=== PATIENT | female | born 1970 | race Caucasian/White ===

== ENCOUNTER 2017-02-11 15:54 | Emergency (ER) | payer SELFPAY ==
[~2017-02-11] VITALS: Ht 167.6 cm; Wt 80.0 kg
[~2017-02-11 15:54] MED LIST: BACT800T5 PO; BENZ2; HALO10TA OR; PYRE1SHA4 TOPICAL; SULF1TAB47 PO; TRAZ100 PO; Z.0.NO CURRENT MEDS; [UNRECOGNIZED DRUG - CODE] PO
[2017-02-11 16:01] VITALS: BP 119/78; PULSE 94; RESP 17; TEMP 98.5; O2SAT 98
--- NOTE | 2017-02-11 16:27 | PD ---
HPI Chief Complaint: Headache Time Seen by Provider: 16:17 Travel History International Travel<30 days: No Contact w/Intl Traveler<30days: No Traveled to known affect area: No History of Present Illness HPI Patient is a 46-year-old female presents emergency Department with complaints of headache hospital loss of consciousness right ankle left knee pain and left elbow pain. Patient states that she was walking and stepped in a pothole with her right ankle twisted her ankle fell into her left side. She does not think she hit her head but is unsure. She recalls the events of the trip and fall quite clearly and thinks that she had a brief loss of consciousness. Incident happened just prior to arrival. She is placed in a c-collar in triage. He is not on any blood thinners no other medical problems. PFSH Past Medical History Anxiety: Yes Depression: Yes (SUICIDE ATTEMPT) Diminished Hearing: No Kidney Stones: Yes ?: Unknown LMP: 1 MONTH : 5 Para: 2 Miscarriage: 3 : 0 Ovarian Cysts: Yes Dilation and Curettage (D&C): Yes Tubal Ligation: Yes Past Surgical History Appendectomy: Yes Section: Yes Gynecologic Surgery: Yes (EXPLOR LAP & CLAMPS TO FALLOPIAN TUBES ) Tonsillectomy: Yes Social History Alcohol Use: No Tobacco Use: Yes (1/2 PPD) Substance Use: No (Patient denies any past use/abuse. ) Allergies-Medications (Allergen,Severity, Reaction): Coded Allergies: Penicillin (Verified Allergy, Mild, RASH, 02/11/17) Reported Meds & Prescriptions Reported Meds & Active Scripts Active Flexeril (Cyclobenzaprine HCl) 10 Mg Tab 10 Mg PO TID Review of Systems Except as stated in HPI: all other systems reviewed are Neg Physical Exam Narrative GENERAL: Well-developed well-nourished no apparent distress SKIN: Focused skin assessment warm/dry. HEAD: Atraumatic. Normocephalic. No raccoons eyes no abraham signs. EYES: Pupils equal and round. No scleral icterus. No injection or drainage. ENT: No nasal bleeding or discharge. Mucous membranes pink and moist. NECK: Trachea midline. No JVD. CARDIOVASCULAR: Regular rate and rhythm. No murmur appreciated. RESPIRATORY: No accessory muscle use. Clear to auscultation. Breath sounds equal bilaterally. GASTROINTESTINAL: Abdomen soft, non-tender, nondistended. Hepatic and splenic margins not palpable. MUSCULOSKELETAL: No obvious deformities. No clubbing. No cyanosis. No edema. Left lower extremity: There is an abrasion to the left knee just below the patella. No joint effusion is observed, patient does have some tenderness at the patella. Full minimally tender range of motion of the left knee. No tenderness at the hip and ankle or foot. No obvious deformities, pulse motor sensory intact distally equal bilaterally Right lower extremity: There is some tenderness at the medial malleolus of the right ankle. No gross deformity seen of the right lower extremity. Hip knee and foot are within normal limits. No skin wounds. Pulses motor and sensory intact distally Equal bilaterally Upper extremities: There is no tenderness at the shoulder elbow wrist or hand bilaterally. Patient does state that her left elbow aches somewhat. No gross deformities, no skin wounds or bruising. Pulses motor and sensory intact distally Equal bilaterally Axial skeleton: No tenderness at the CT or L-spine.No step-offs. Pelvis stable. NEUROLOGICAL: Awake and alert and oriented, cranial nerves II through XII grossly intact nonfocal, 5 out of 5 strength in all 4 extremity's, cerebellar testing normal, sensory normal. PSYCHIATRIC: Appropriate mood and affect; insight and judgment normal. Data Data Last Documented VS Vital Signs Date Time Temp Pulse Resp B/P Pulse Ox O2 Delivery O2 Flow Rate FiO2 02/11/17 17:30 84 16 122/74 98 Room Air 02/11/17 16:[address] Brain W/O Iv Contrast(Rout) (02/11/17 ) Ct Cerv Spine W/O Contrast (02/11/17 ) Oxycodone-Acetamin 5-325 Mg (Percocet (02/11/17 16:30) Knee, Complete (4vws) (02/11/17 ) Ankle, Complete ([id number]) (02/11/17 ) Remove Cervical Collar (02/11/17 17:51) MDM Medical Decision Making Medical Screen Exam Complete: Yes Emergency Medical Condition: Yes Differential Diagnosis Cervical fracture unlikely, head contusion, closed head injury, knee sprain, knee strain, knee fracture, ankle sprain, ankle sprain, ankle fracture, elbow pain. Narrative Course Patient was roomed in the emergency department, she appears well but in some moderate pain. She may have distracting injury and therefore CT his C-spine is indicated. Patient does complain of headache as well as some mild nausea after falling. She does not remember she hit her head or not. She did have loss of consciousness which is very brief. CT head is therefore indicated. Patient does have indications for x-rays of her left knee and right ankle. All the above images were obtained reviewed by me and radiology negative. Last 24 hours Impressions Knee X-Ray 02/11/17 0000 Signed Impressions: Service Date/Time: Saturday, February 11, 2017 16:38 - CONCLUSION: 1. No acute findings. Mild osteoarthritis. Giovanni Ambrosio MD Head CT 02/11/17 0000 Signed Impressions: Service Date/Time: Saturday, February 11, 2017 16:45 - CONCLUSION: Normal examination for a patient of this age. Giovanni Ambrosio MD Cervical Spine CT 02/11/17 0000 Signed Impressions: Service Date/Time: Saturday, February 11, 2017 16:45 - CONCLUSION: Normal examination for a patient of this age. Giovanni Ambrosio MD Ankle X-Ray 02/11/17 0000 Signed Impressions: Service Date/Time: Saturday, February 11, 2017 16:40 - CONCLUSION: Normal examination for a patient of this age. Giovanni Ambrosio MD This was given pain medicine in the emergency department she had Rodriguez wrap applied, she is ambulatory in emerged Department was discharged with a prescription for flexural. Discussed symptomatically management return to ED criteria. Diagnosis Primary Impression: Closed head injury Qualified Code: S09.90XA - Closed head injury, initial encounter Additional Impressions: Knee sprain Ankle sprain Med/Other Pt SpecificInfo: Prescription(s) given Scripts Cyclobenzaprine (Flexeril)10 Mg Tab10 Mg PO TID #20 TAB Ref 0 Prov:Vasile Crews MD 02/11/17 Disposition: 01 DISCHARGE HOME Condition: Stable Vasile Crews MD Feb 11, 2017 16:27
[2017-02-11] MEDS ORDERED: oxyCODONE/ACETAMINOPHEN 5 MG/325 MG TAB PO ONE (16:30)
--- NOTE | 2017-02-11 17:12 | RADHPO ---
EXAM DATE/TIME: 02/11/2017 16:38 [facility] COMPARISON: No previous studies available for comparison. INDICATIONS : Left knee pain post fall today. MEDICAL HISTORY : None. SURGICAL HISTORY : None. ENCOUNTER: Initial ACUITY: 1 day PAIN SCORE: 7/10 LOCATION: Left knee FINDINGS: Four view examination of the left knee demonstrates no evidence of fracture or dislocation. Bony min eralization is normal. The articular surfaces are intact. The suprapatellar soft tissues have a nor mal configuration. CONCLUSION: 1. No acute findings. Mild osteoarthritis. Giovanni Ambrosio MD on February 11, 2017 at 17:09 Board Certified Radiologist. This report was verified electronically.
--- NOTE | 2017-02-11 17:13 | RADHPO ---
EXAM DATE/TIME: 02/11/2017 16:40 [facility] COMPARISON: No previous studies available for comparison. INDICATIONS : Right ankle pain post fall today. MEDICAL HISTORY : None. SURGICAL HISTORY : None. ENCOUNTER: Initial ACUITY: 1 day PAIN SCORE: 7/10 LOCATION: Right ankle. FINDINGS: Three view exam was performed of the right ankle. The bony structures are in normal alignment. No e vidence of fracture, dislocation, or soft tissue swelling. The ankle mortise is intact. No radiopaq ue foreign bodies are seen. Bony mineralization is normal. CONCLUSION: Normal examination for a patient of this age. Giovanni Ambrosio MD on February 11, 2017 at 17:10 Board Certified Radiologist. This report was verified electronically.
--- NOTE | 2017-02-11 17:25 | RADHPO ---
EXAM DATE/TIME: 02/11/2017 16:45 [facility] COMPARISON: No previous studies available for comparison. INDICATIONS : Fall RADIATION DOSE: 68.04 CTDIvol (mGy) MEDICAL HISTORY : None SURGICAL HISTORY : None. ENCOUNTER: Initial ACUITY: 1 day PAIN SCALE: 4/10 LOCATION: cranial TECHNIQUE: Multiple contiguous axial images were obtained of the head. Using automated exposure control and adj ustment of the mA and/or kV according to patient size, radiation dose was kept as low as reasonably a chievable to obtain optimal diagnostic quality images. FINDINGS: CEREBRUM: The ventricles are normal for age. No evidence of midline shift, mass lesion, hemorrhage or acute in farction. No extra-axial fluid collections are seen. POSTERIOR FOSSA: The cerebellum and brainstem are intact. The 4th ventricle is midline. The cerebellopontine angle i s unremarkable. EXTRACRANIAL: The visualized portion of the orbits is intact. SKULL: The calvaria is intact. No evidence of skull fracture. CONCLUSION: Normal examination for a patient of this age. Giovanni Ambrosio MD on February 11, 2017 at 17:21 Board Certified Radiologist. This report was verified electronically.
[2017-02-11 17:30] VITALS: BP 122/74; PULSE 84; RESP 16; O2SAT 98
--- NOTE | 2017-02-11 17:44 | RADHPO ---
EXAM DATE/TIME: 02/11/2017 16:45 [facility] COMPARISON: No previous studies available for comparison. INDICATIONS : Fall, neck pain. RADIATION DOSE: 26.60 CTDIvol (mGy) MEDICAL HISTORY : None SURGICAL HISTORY : None. ENCOUNTER: Initial ACUITY: 1 day PAIN SCALE: 4/10 LOCATION: neck TECHNIQUE: Volumetric scanning of the cervical spine was performed. Multiplanar reconstructions in the sagittal, coronal and oblique axial planes were performed. Using automated exposure control and adjustment o f the mA and/or kV according to patient size, radiation dose was kept as low as reasonably achievable to obtain optimal diagnostic quality images. FINDINGS: VERTEBRAE: Normal vertebral body height. ALIGNMENT: No evidence of subluxation. C2-C3: The bony spinal canal is normal in size. No evidence of disc bulge or herniation. The neural forami na are bilaterally patent. C3-C4: The bony spinal canal is normal in size. No evidence of disc bulge or herniation. The neural forami na are bilaterally patent. C4-C5: The bony spinal canal is normal in size. No evidence of disc bulge or herniation. The neural forami na are bilaterally patent. C5-C6: The bony spinal canal is normal in size. No evidence of disc bulge or herniation. The neural forami na are bilaterally patent. C6-C7: The bony spinal canal is normal in size. No evidence of disc bulge or herniation. The neural forami na are bilaterally patent. C7-T1: The bony spinal canal is normal in size. No evidence of disc bulge or herniation. The neural forami na are bilaterally patent. CONCLUSION: Normal examination for a patient of this age. Giovanni Ambrosio MD on February 11, 2017 at 17:38 Board Certified Radiologist. This report was verified electronically.
[2017-02-11] MEDS ORDERED: CYCL1TAB29 PO (17:53)
== END 2017-02-11 18:11 | disposition home or self-care (01) ==
LOC: PHED 15:54
DX: S09.90XA Unspecified injury of head, initial encounter (principal); S83.92XA Sprain of unspecified site of left knee, initial encounter; S93.401A Sprain of unspecified ligament of right ankle, initial encounter; M25.522 Pain in left elbow; R11.0 Nausea; F17.200 Nicotine dependence, unspecified, uncomplicated; Z86.59 Personal history of other mental and behavioral disorders; Z87.442 Personal history of urinary calculi; W17.2XXA Fall into hole, initial encounter; Y93.01 Activity, walking, marching and hiking
CPT/HCPCS: 70450; 72125; 73564; 73610

== ENCOUNTER 2017-03-25 16:11 | Emergency (ER) | payer SELFPAY ==
[~2017-03-25] VITALS: Ht 170.2 cm; Wt 85.0 kg
[~2017-03-25 16:11] MED LIST changes: -BACT800T5 PO; -BENZ2; +CYCL1TAB29 PO; -HALO10TA OR; -PYRE1SHA4 TOPICAL; -SULF1TAB47 PO; -TRAZ100 PO; -Z.0.NO CURRENT MEDS; -[UNRECOGNIZED DRUG - CODE] PO
[2017-03-25 16:15] VITALS: BP 132/81; PULSE 81; RESP 15; TEMP 98.9; O2SAT 99
[2017-03-25] MEDS ORDERED: IBUP800T23 PO (16:27)
--- NOTE | 2017-03-25 16:34 | PD ---
HPI Chief Complaint: Skin Problem Time Seen by Provider: 16:34 Travel History International Travel<30 days: No Contact w/Intl Traveler<30days: No Traveled to known affect area: No History of Present Illness HPI 46-year-old female presents emergency Department with complaint of a bug bite to bilateral forearms. The left forearm bug bite was about 3 days ago and the right forearm bug bite was yesterday. But by of the left forearm has opened up and drained. Reports pain and swelling to both areas. Denies fever. Reports nausea without vomiting. Has been taking ibuprofen with good relief of pain. Has done warm compresses to both areas. Denies being up-to-date on her tetanus vaccination. Allergies to penicillin. Has no other medical complaints. No other modifying factors or associated signs and symptoms. PFSH Past Medical History Anxiety: Yes Depression: Yes (SUICIDE ATTEMPT) Cardiovascular Problems: Yes (HTN ) Diminished Hearing: No Kidney Stones: Yes Tetanus Vaccination: < 5 Years Influenza Vaccination: No ?: Not : 5 Para: 2 Miscarriage: 3 : 0 Ovarian Cysts: Yes Dilation and Curettage (D&C): Yes Tubal Ligation: Yes Past Surgical History Appendectomy: Yes Section: Yes (X 2) Gynecologic Surgery: Yes (EXPLOR LAP & CLAMPS TO FALLOPIAN TUBES ) Tonsillectomy: Yes Social History Alcohol Use: No Tobacco Use: Yes (1/2-1 PPD) Substance Use: No (Patient denies any past use/abuse. ) Allergies-Medications (Allergen,Severity, Reaction): Coded Allergies: Penicillin (Verified Allergy, Mild, RASH, 02/11/17) Reported Meds & Prescriptions Reported Meds & Active Scripts Active Zofran Odt (Ondansetron Odt) 4 Mg Tab 4 Mg SL Q8HR PRN Clindamycin (Clindamycin HCl) 150 Mg Cap 450 Mg PO Q6H 10 Days Flexeril (Cyclobenzaprine HCl) 10 Mg Tab 10 Mg PO TID Reported Ibuprofen 800 Mg Tab 800 Mg PO Q4HR PRN Review of Systems Except as stated in HPI: all other systems reviewed are Neg Physical Exam Narrative GENERAL: Well-nourished, well-developed female Patient, in no acute distress; afebrile, nontoxic-appearing SKIN: There is an area of erythema to the right forearm with a pinpoint scab in the center; areas without fluctuance or drainage; consistent with cellulitis. Left forearm has an indurated area that is fluctuant and draining purulent drainage and surrounded by a zone of inflammation. No lymphangitis to bilateral upper extremities. Bilateral upper extremities are supple and non- tense with 2+ radial pulses and sensory intact. HEAD: Atraumatic. Normocephalic. EYES: Pupils equal and round. No scleral icterus. No injection or drainage. ENT: Mucosa pink and moist. Airway patent. NECK: Trachea midline. CARDIOVASCULAR: Regular rate. RESPIRATORY: No accessory muscle use. GASTROINTESTINAL: Rounded. MUSCULOSKELETAL: No obvious deformities. No clubbing. No cyanosis. No edema. NEUROLOGICAL: Awake and alert. Oriented 3. No obvious cranial nerve deficits. Motor grossly within normal limits. Normal speech. PSYCHIATRIC: Appropriate mood and affect; insight and judgment normal. Data Data Last Documented VS Vital Signs Date Time Temp Pulse Resp B/P Pulse Ox O2 Delivery O2 Flow Rate FiO2 03/25/17 16:15 98.9 81 15 132/81 99 Orders Ondansetron Odt (Zofran Odt) (03/25/17 16:45) Wound Culture And Gram Stain (03/25/17 16:35) Tetanus/Diphtheria Tox Adult (Tetanus/Di (03/25/17 16:45) MDM Medical Decision Making Medical Screen Exam Complete: Yes Emergency Medical Condition: Yes Medical Record Reviewed: Yes Differential Diagnosis Infected insect bite, cellulitis, abscess Narrative Course 46-year-old female with purulent cellulitis to the left forearm and cellulitis to the right forearm. Wound culture pending. Tetanus updated in the ER. Patient is afebrile and nontoxic-appearing. She denies fever. Reports nausea without vomiting. Zofran administered in the ER. Clindamycin and Zofran prescribed for home. Patient verbalizes understanding and agreement with treatment plan. Patient is medically cleared and stable for discharge. Discussed reasons to return to the emergency department. Instructed patient to follow up with primary care provider. Patient agrees with treatment plan. The patients vital signs are stable and the patient is stable for outpatient follow- up and treatment. Patient discharged home, stable and in no acute distress. Diagnosis Primary Impression: Cellulitis of forearm Referrals: Primary Care Physician Patient Instructions: Abscess (ED), Abscess Follow-up (ED), Cellulitis (ED), General Instructions Departure Forms: Tests/Procedures, Work Release Enter return to work date: March 26, 2017 Additional Instructions: Complete full course of antibiotics Warm compresses to the affected area Keep area clean and dry Ibuprofen or Tylenol as directed and as needed for pain and inflammation Follow-up with primary care provider Return to emergency department immediately with worsening of symptoms Med/Other Pt SpecificInfo: Prescription(s) given Scripts Ondansetron Odt (Zofran Odt)4 Mg Tab4 Mg SL Q8HR PRN (Nausea/Vomiting) #10 TAB Ref 0 Prov:Rowena García 03/25/17 Clindamycin 150 Mg [id number] Mg PO Q6H 10 Days Ref 0 Prov:Rowena García 03/25/17 Disposition: 01 DISCHARGE HOME Condition: Stable Rowena García March 25, 2017 16:34
[2017-03-25] MEDS ORDERED: CLIN1CAP5 PO (16:38)
[2017-03-25] MEDS ORDERED: ZOFR4TAB3 SL (16:38)
[2017-03-25] MEDS ORDERED: TETANUS/DIPHTHERIA TOXOID ADULT 0.5 ML VIAL IM ONE (16:45)
[2017-03-25] MEDS ORDERED: ONDANSETRON ODT 4 MG TAB PO ONE (16:45)
== END 2017-03-25 16:57 | disposition home or self-care (01) ==
LOC: NEPK 16:11
DX: L03.114 Cellulitis of left upper limb (principal); L03.113 Cellulitis of right upper limb; B95.62 Methicillin resistant Staphylococcus aureus infection as the cause of diseases classified elsewhere; I10 Essential (primary) hypertension; F17.200 Nicotine dependence, unspecified, uncomplicated; Z23 Encounter for immunization; Z86.59 Personal history of other mental and behavioral disorders; Z87.442 Personal history of urinary calculi; W57.XXXA Bitten or stung by nonvenomous insect and other nonvenomous arthropods, initial encounter
CPT/HCPCS: 86403; 87070; 87186; 87205; 90471; 90714

== ENCOUNTER 2017-12-10 19:44 | Emergency (ER) | payer SELFPAY ==
[~2017-12-10] VITALS: Ht 167.6 cm; Wt 72.7 kg
[~2017-12-10 19:44] MED LIST changes: +CLIN150C14 PO; +CYCL10TA PO; -CYCL1TAB29 PO; +IBUP1TAB7 PO; +ZOFR4TAB3 SL
[2017-12-10 19:45] VITALS: BP 149/67; PULSE 97; RESP 16; TEMP 98.2; O2SAT 100
[2017-12-10 21:36] LABS: AUTOMATED NEUTROPHIL # 4.1 TH/MM3 (1.8-7.7); BASOPHIL # 0.1 TH/MM3 (0-0.2); BASOPHIL % 1.1 % (0.0-2.0); EOSINOPHIL # 0.1 TH/MM3 (0-0.4); EOSINOPHIL % 0.8 % (0.0-4.0); HEMATOCRIT 39.4 % (35.0-46.0); HEMOGLOBIN 13.5 GM/DL (11.6-15.3); LYMPH % 46.7 % (9.0-44.0); LYMPHOCYTE # 4.1 TH/MM3 (1.0-4.8); MEAN CELL VOLUME 90.9 FL (80.0-100.0); MEAN CORPUSCULAR HEMOGLOBIN 31.2 PG (27.0-34.0); MEAN CORPUSCULAR HGB CONC 34.3 % (32.0-36.0); MEAN PLATELET VOLUME 9.6 FL (7.0-11.0); MONO % 4.4 % (0.0-8.0); MONOCYTE # 0.4 TH/MM3 (0-0.9); PLATELET COUNT 317 TH/MM3 (150-450); RED BLOOD COUNT 4.33 MIL/MM3 (4.00-5.30); WHITE BLOOD COUNT 8.8 TH/MM3 (4.0-11.0)
[2017-12-10 21:43] LABS: BILIRUBIN, URINE NEG (NEG); BLOOD, URINE NEG (NEG); GLUCOSE,URINE NEG (NEG); KETONE, URINE NEG (NEG); MUCUS URINE FEW /lpf (OCC); NITRITE,URINE NEG (NEG); PH, URINE 5.5 (5.0-8.5); SQUAMOUS EPITHELIAL CELL URINE 1 /hpf (0-5); URINE COLOR YELLOW (YELLW/STRAW); URINE LEUKOCYTE ESTERASE NEG (NEG)
[2017-12-10 21:56] LABS: ALT (GPT) 13 U/L (10-53)
--- NOTE | 2017-12-10 21:56 | PD ---
HPI Chief Complaint: Psychiatric Symptoms Time Seen by Provider: 20:33 Travel History International Travel<30 days: No Contact w/Intl Traveler<30days: No Traveled to known affect area: No History of Present Illness HPI Patient is a 47-year-old female presenting to the emergency Department voluntarily for psychiatric evaluation. Patient reports a history of schizophrenia and bipolar disorder, she reports that she has been hallucinating , her mood swings have been increasing. She presents with her employer who corroborates her statements. Patient reports suicidal ideations, she reports a previous suicide attempt several years ago after an ectopic . Symptom onset has been gradual, it was exacerbated due to her birthday and her children did not contact her. In reports that she has a cough, her primary doctor prescribed prednisone and an antibiotic, she states the cough is better. She denies any shortness of breath, chest pain, fever, chills, abdominal pain, headache. Patient uses tobacco products and occasionally smokes marijuana, she denies any alcohol use. Symptoms are moderate in nature. Employer who is with her is concerned as well. PFSH Past Medical History Bipolar Disorder: Yes Anxiety: Yes Depression: Yes (SUICIDE ATTEMPT hx) Cardiovascular Problems: Yes (HTN ) Diminished Hearing: No Kidney Stones: Yes Tetanus Vaccination: < 5 Years Influenza Vaccination: No ?: Unknown : 5 Para: 2 Miscarriage: 3 : 0 Ovarian Cysts: Yes Dilation and Curettage (D&C): Yes Tubal Ligation: Yes Past Surgical History Appendectomy: Yes Section: Yes (X 2) Gynecologic Surgery: Yes (EXPLOR LAP & CLAMPS TO FALLOPIAN TUBES ) Tonsillectomy: Yes Social History Alcohol Use: No (occ) Tobacco Use: Yes (1/2-1 PPD) Substance Use: No (Patient denies any past use/abuse. ) Allergies-Medications (Allergen,Severity, Reaction): Coded Allergies: penicillin G (Unverified Allergy, Mild, RASH, 06/13/17) *MDRO Multi-Drug Resistant Organism (Verified Adverse Reaction, Unknown, MRSA, 03/28/17) MRSA (arm wound) - 03/25/17 Reported Meds & Prescriptions Reported Meds & Active Scripts Active Review of Systems Except as stated in HPI: all other systems reviewed are Neg Respiratory: Positive: Cough Psychiatric: Positive: Depression, Suicidal Ideations, Mood Disorder Physical Exam Narrative GENERAL: Well-developed, well-nourished, well female. Presenting in no acute distress. SKIN: Warm and dry. HEAD: Atraumatic. Normocephalic. EYES: Pupils equal and round. No scleral icterus. No injection or drainage. ENT: No nasal bleeding or discharge. Mucous membranes pink and moist. NECK: Trachea midline. No JVD. CARDIOVASCULAR: Regular rate and rhythm. RESPIRATORY: No accessory muscle use. Clear to auscultation. Breath sounds equal bilaterally. GASTROINTESTINAL: Abdomen soft, non-tender, nondistended. Hepatic and splenic margins not palpable. MUSCULOSKELETAL: Extremities without clubbing, cyanosis, or edema. No obvious deformities. NEUROLOGICAL: Awake and alert. No obvious cranial nerve deficits. Motor grossly within normal limits. Five out of 5 muscle strength in the arms and legs. Normal speech. PSYCHIATRIC: Depressed mood and flat affect; insight and judgment normal. Data Data Last Documented VS Vital Signs Date Time Temp Pulse Resp B/P (MAP) Pulse Ox O2 Delivery O2 Flow Rate FiO2 12/10/17 19:45 98.2 97 16 149/67 (94) 100 Room Air Orders Orders Complete Blood Count With Diff (12/10/17 20:48) Comprehensive Metabolic Panel (12/10/17 20:48) Thyroid Stimulating Hormone (12/10/17 20:48) Urinalysis - C+S If Indicated (12/10/17 20:48) Psych Screen (12/10/17 20:48) Drug Screen, Random Urine (12/10/17 20:48) Labs Laboratory Tests Test 12/10/17 21:00 White Blood Count 8.8 TH/MM3 Red Blood Count 4.33 MIL/MM3 Hemoglobin 13.5 GM/DL Hematocrit 39.4 % Mean Corpuscular Volume 90.9 FL Mean Corpuscular Hemoglobin 31.2 PG Mean Corpuscular Hemoglobin Concent 34.3 % Red Cell Distribution Width 14.0 % Platelet Count 317 TH/MM3 Mean Platelet Volume 9.6 FL Neutrophils (%) (Auto) 47.0 % Lymphocytes (%) (Auto) 46.7 % Monocytes (%) (Auto) 4.4 % Eosinophils (%) (Auto) 0.8 % Basophils (%) (Auto) 1.1 % Neutrophils # (Auto) 4.1 TH/MM3 Lymphocytes # (Auto) 4.1 TH/MM3 Monocytes # (Auto) 0.4 TH/MM3 Eosinophils # (Auto) 0.1 TH/MM3 Basophils # (Auto) 0.1 TH/MM3 CBC Comment DIFF FINAL Differential Comment Urine Color YELLOW Urine Turbidity CLEAR Urine pH 5.5 Urine Specific [place] 1.007 Urine Protein NEG mg/dL Urine Glucose (UA) NEG mg/dL Urine Ketones NEG mg/dL Urine Occult Blood NEG Urine Nitrite NEG Urine Bilirubin NEG Urine Urobilinogen LESS THAN 2.0 MG/DL Urine Leukocyte Esterase NEG Urine RBC LESS THAN 1 /hpf Urine WBC LESS THAN 1 /hpf Urine Squamous Epithelial Cells 1 /hpf Urine Mucus FEW /lpf Microscopic Urinalysis Comment CULT NOT INDICATED Blood Urea Nitrogen 7 MG/DL Creatinine 0.84 MG/DL Random Glucose 98 MG/DL Total Protein 8.0 GM/DL Albumin 3.9 GM/DL Calcium Level 9.3 MG/DL Alkaline Phosphatase 71 U/L Aspartate Amino Transf (AST/SGOT) 10 U/L Alanine Aminotransferase (ALT/SGPT) 13 U/L Total Bilirubin 0.3 MG/DL Sodium Level 140 MEQ/L Potassium Level 3.8 MEQ/L Chloride Level 106 MEQ/L Carbon Dioxide Level 24.9 MEQ/L Anion Gap 9 MEQ/L Estimat Glomerular Filtration Rate 73 ML/MIN Thyroid Stimulating Hormone 3rd Gen 3.720 uIU/ML Urine Opiates Screen NEG Urine Barbiturates Screen NEG Urine Amphetamines Screen NEG Urine Benzodiazepines Screen NEG Urine Cocaine Screen NEG Urine Cannabinoids Screen POS MDM Medical Decision Making Medical Screen Exam Complete: Yes Emergency Medical Condition: Yes Medical Record Reviewed: Yes Interpretation(s) Vital Signs Date Time Temp Pulse Resp B/P (MAP) Pulse Ox O2 Delivery O2 Flow Rate FiO2 12/10/17 19:45 98.2 97 16 149/67 (94) 100 Room Air Differential Diagnosis Mood disorder versus schizophrenia versus suicidal ideations versus metabolic abnormality versus other Narrative Course Patient is a 41 sexual female presented voluntarily for psychiatric evaluation due to suicidal ideations, increasing hallucinations and labile mood. Her vital signs are stable.Mental health screening discussed with the patient. Psychiatric screen ordered. Labs reviewed, no acute findings identified. Patient is medically cleared for psychiatric evaluation. Diagnosis Primary Impression: Medical clearance for psychiatric admission Condition: Stable Bita Osborn Dec 10, 2017 21:56
[2017-12-10 22:05] LABS: ALKALINE PHOSPHATASE 71 U/L (45-117); TOTAL BILIRUBIN ADULT 0.3 MG/DL (0.2-1.0)
[2017-12-10 22:30] LABS: ALBUMIN 3.9 GM/DL (3.4-5.0); AST (GOT) 10 U/L (15-37); BICARBONATE 24.9 MEQ/L (21.0-32.0); BLOOD UREA NITROGEN 7 MG/DL (7-18); CALCIUM 9.3 MG/DL (8.5-10.1); CHLORIDE 106 MEQ/L (98-107); CREATININE 0.84 MG/DL (0.50-1.00); GLOMERULAR FILTRATION RATE 73 ML/MIN (>89); GLUCOSE,RANDOM 98 MG/DL (74-106); SODIUM (NA) 140 MEQ/L (136-145)
--- NOTE | 2017-12-10 23:57 | RADRPT ---
EXAM DATE/TIME: 12/10/2017 23:46 [facility] COMPARISON: No previous studies available for comparison. INDICATIONS : Cough. MEDICAL HISTORY : None. SURGICAL HISTORY : None. ENCOUNTER: Initial ACUITY: 1 day PAIN SCORE: 0/10 LOCATION: Bilateral chest FINDINGS: A single view of the chest demonstrates the lungs to be symmetrically aerated without evidence of mas s, infiltrate or effusion. The cardiomediastinal contours are unremarkable. Osseous structures are intact. CONCLUSION: No acute disease. Aj Garcia MD on December 10, 2017 at 23:56 Board Certified Radiologist. This report was verified electronically.
[2017-12-11] MEDS ORDERED: ALPRAZolam 1 MG TAB PO ONE (02:45)
[2017-12-11] MEDS ORDERED: ACETAMINOPHEN 325 MG TAB PO ONE ×2 (03:00→11:15)
[2017-12-11 07:25] VITALS: BP 123/58; PULSE 80; RESP 14; TEMP 98.8; O2SAT 99
--- NOTE | 2017-12-11 12:42 | PD ---
Physical Exam Date Seen by Provider: Dec 11, 2017 Time Seen by Provider: 12:38 Narrative 47-year-old female with history of schizophrenia previously medically cleared for psychiatric evaluation voluntarily is requesting to be discharged so she can go to [facility]. She has been seen there in the past. Patient previously intubated suicidal ideation but she is able to contract for safety with me and is planning to go straight to [facility] with her mom is picking her up. I feel the patient is safe to pursue this treatment plan. I stated to the patient that she can return if symptoms worsen as needed and she agrees. Data Data Last Documented VS Vital Signs Date Time Temp Pulse Resp B/P (MAP) Pulse Ox O2 Delivery O2 Flow Rate FiO2 12/11/17 07:25 98.8 80 14 123/58 (79) 99 Room Air Orders Orders Complete Blood Count With Diff (12/10/17 20:48) Comprehensive Metabolic Panel (12/10/17 20:48) Thyroid Stimulating Hormone (12/10/17 20:48) Urinalysis - C+S If Indicated (12/10/17 20:48) Psych Screen (12/10/17 20:48) Drug Screen, Random Urine (12/10/17 20:48) Chest, Single Ap (12/10/17 ) Alprazolam (Xanax) (12/11/17 02:45) Acetaminophen (Tylenol) (12/11/17 03:00) Diet Regular Basic (12/11/17 Breakfast) Acetaminophen (Tylenol) (12/11/17 11:15) Ibuprofen (Motrin) (12/11/17 12:45) Labs Laboratory Tests Test 12/10/17 21:00 White Blood Count 8.8 TH/MM3 Red Blood Count 4.33 MIL/MM3 Hemoglobin 13.5 GM/DL Hematocrit 39.4 % Mean Corpuscular Volume 90.9 FL Mean Corpuscular Hemoglobin 31.2 PG Mean Corpuscular Hemoglobin Concent 34.3 % Red Cell Distribution Width 14.0 % Platelet Count 317 TH/MM3 Mean Platelet Volume 9.6 FL Neutrophils (%) (Auto) 47.0 % Lymphocytes (%) (Auto) 46.7 % Monocytes (%) (Auto) 4.4 % Eosinophils (%) (Auto) 0.8 % Basophils (%) (Auto) 1.1 % Neutrophils # (Auto) 4.1 TH/MM3 Lymphocytes # (Auto) 4.1 TH/MM3 Monocytes # (Auto) 0.4 TH/MM3 Eosinophils # (Auto) 0.1 TH/MM3 Basophils # (Auto) 0.1 TH/MM3 CBC Comment DIFF FINAL Differential Comment Urine Color YELLOW Urine Turbidity CLEAR Urine pH 5.5 Urine Specific Carrington 1.007 Urine Protein NEG mg/dL Urine Glucose (UA) NEG mg/dL Urine Ketones NEG mg/dL Urine Occult Blood NEG Urine Nitrite NEG Urine Bilirubin NEG Urine Urobilinogen LESS THAN 2.0 MG/DL Urine Leukocyte Esterase NEG Urine RBC LESS THAN 1 /hpf Urine WBC LESS THAN 1 /hpf Urine Squamous Epithelial Cells 1 /hpf Urine Mucus FEW /lpf Microscopic Urinalysis Comment CULT NOT INDICATED Blood Urea Nitrogen 7 MG/DL Creatinine 0.84 MG/DL Random Glucose 98 MG/DL Total Protein 8.0 GM/DL Albumin 3.9 GM/DL Calcium Level 9.3 MG/DL Alkaline Phosphatase 71 U/L Aspartate Amino Transf (AST/SGOT) 10 U/L Alanine Aminotransferase (ALT/SGPT) 13 U/L Total Bilirubin 0.3 MG/DL Sodium Level 140 MEQ/L Potassium Level 3.8 MEQ/L Chloride Level 106 MEQ/L Carbon Dioxide Level 24.9 MEQ/L Anion Gap 9 MEQ/L Estimat Glomerular Filtration Rate 73 ML/MIN Thyroid Stimulating Hormone 3rd Gen 3.720 uIU/ML Urine Opiates Screen NEG Urine Barbiturates Screen NEG Urine Amphetamines Screen NEG Urine Benzodiazepines Screen NEG Urine Cocaine Screen NEG Urine Cannabinoids Screen POS MDM Medical Record Reviewed: Yes Supervised Visit with MEME: Yes Narrative Course 47-year-old female with history of schizophrenia previously medically cleared for psychiatric evaluation voluntarily is requesting to be discharged so she can go to [facility]. She has been seen there in the past. Patient previously intubated suicidal ideation but she is able to contract for safety with me and is planning to go straight to [facility] with her mom is picking her up. I feel the patient is safe to pursue this treatment plan. I stated to the patient that she can return if symptoms worsen as needed and she agrees. Diagnosis Primary Impression: Medical clearance for psychiatric admission Additional Impression: Depression Qualified Codes: F32.89 - Other specified depressive episodes Referrals: [facility] (Out patient) [facility] Patient Instructions: General Instructions Med/Other Pt SpecificInfo: No Change to Meds Condition: Chele Israel Dec 11, 2017 12:42
[2017-12-11 12:44] VITALS: BP 121/76
[2017-12-11] MEDS ORDERED: IBUPROFEN 600 MG TAB PO ONE (12:45)
== END 2017-12-11 12:52 | disposition home or self-care (01) ==
LOC: NEPD 19:44
DX: F31.9 Bipolar disorder, unspecified (principal); F20.9 Schizophrenia, unspecified; R45.851 Suicidal ideations; F41.9 Anxiety disorder, unspecified; I10 Essential (primary) hypertension; F17.200 Nicotine dependence, unspecified, uncomplicated
CPT/HCPCS: 71045; 80053; 80307; 81001; 84443; 85025; 99284

== ENCOUNTER 2018-03-26 15:04 | Inpatient (IN) | payer OTHER ==
[~2018-03-26] VITALS: Ht 167.6 cm; Wt 91.7 kg
[2018-03-26 15:14] VITALS: BP 140/88; PULSE 119; RESP 18; TEMP 99.6
--- NOTE | 2018-03-26 17:11 | PD ---
HPI Chief Complaint: Psychiatric Symptoms Time Seen by Provider: 16:21 Travel History International Travel<30 days: No Contact w/Intl Traveler<30days: No Traveled to known affect area: No History of Present Illness HPI 47-year-old female presents emergency department as a Allen act with suicide ideations. Patient has a history of paranoid schizophrenia and believes that everyone else out to get her. She also says that "she should be shot" according to the Allen act. At this time, patient denies any suicidal or homicidal ideations. Denies hallucinations. Denies medical history or medication use. She denies fevers or chills. Denies illicit drug use. PFSH Past Medical History Hx Anticoagulant Therapy: No Bipolar Disorder: Yes Anxiety: Yes Depression: Yes (SUICIDE ATTEMPT hx) Cardiovascular Problems: No Chemotherapy: No Cerebrovascular Accident: No Diabetes: No Diminished Hearing: No Kidney Stones: Yes Respiratory: No ?: Not LMP: I dont have periods anymore : 5 Para: 2 Miscarriage: 3 : 0 Ovarian Cysts: Yes Dilation and Curettage (D&C): Yes Tubal Ligation: Yes Past Surgical History Appendectomy: Yes Section: Yes (X 2) Gynecologic Surgery: Yes (EXPLOR LAP & CLAMPS TO FALLOPIAN TUBES ) Hysterectomy: No Tonsillectomy: Yes Social History Alcohol Use: No (occ) Tobacco Use: Yes (1/2-1 PPD) Substance Use: Yes Allergies-Medications (Allergen,Severity, Reaction): Coded Allergies: penicillin G (Unverified Allergy, Mild, RASH, 06/13/17) *MDRO Multi-Drug Resistant Organism (Verified Adverse Reaction, Unknown, MRSA, 03/28/17) MRSA (arm wound) - 03/25/17 Reported Meds & Prescriptions Reported Meds & Active Scripts Active Review of Systems Except as stated in HPI: all other systems reviewed are Neg Physical Exam Narrative GENERAL: Well-developed, well-nourished, disheveled SKIN: Focused skin assessment warm/dry. Tanned HEAD: Atraumatic. Normocephalic. EYES: Pupils equal and round. No scleral icterus. No injection or drainage. ENT: No nasal bleeding or discharge. Mucous membranes pink and moist. NECK: Trachea midline. No JVD. No lymphadenopathy CARDIOVASCULAR: Regular rate and rhythm. No murmur appreciated. RESPIRATORY: No accessory muscle use. Clear to auscultation. Breath sounds equal bilaterally. GASTROINTESTINAL: Abdomen soft, non-tender, nondistended. MUSCULOSKELETAL: No obvious deformities. No clubbing. No cyanosis. No edema. NEUROLOGICAL: Awake and alert. No obvious cranial nerve deficits. Motor grossly within normal limits. Normal speech. PSYCHIATRIC: Appropriate mood and affect; insight and judgment normal. Data Data Last Documented VS Vital Signs Date Time Temp Pulse Resp B/P (MAP) Pulse Ox O2 Delivery O2 Flow Rate FiO2 03/26/18 18:26 99.6 119 18 140/88 (105) 98 Room Air Orders Orders Diet Regular Basic (03/26/18 Dinner) Complete Blood Count With Diff (03/26/18 16:53) Comprehensive Metabolic Panel (03/26/18 16:53) Thyroid Stimulating Hormone (03/26/18 16:53) Urinalysis - C+S If Indicated (03/26/18 16:53) Psych Screen (03/26/18 16:53) Drug Screen, Random Urine (03/26/18 16:53) Labs Laboratory Tests Test 03/26/18 17:06 White Blood Count 12.5 TH/MM3 Red Blood Count 4.62 MIL/MM3 Hemoglobin 14.4 GM/DL Hematocrit 42.1 % Mean Corpuscular Volume 91.1 FL Mean Corpuscular Hemoglobin 31.2 PG Mean Corpuscular Hemoglobin Concent 34.3 % Red Cell Distribution Width 13.8 % Platelet Count 360 TH/MM3 Mean Platelet Volume 10.0 FL Neutrophils (%) (Auto) 65.8 % Lymphocytes (%) (Auto) 26.1 % Monocytes (%) (Auto) 7.1 % Eosinophils (%) (Auto) 0.3 % Basophils (%) (Auto) 0.7 % Neutrophils # (Auto) 8.2 TH/MM3 Lymphocytes # (Auto) 3.3 TH/MM3 Monocytes # (Auto) 0.9 TH/MM3 Eosinophils # (Auto) 0.0 TH/MM3 Basophils # (Auto) 0.1 TH/MM3 CBC Comment DIFF FINAL Differential Comment Blood Urea Nitrogen 7 MG/DL Creatinine 0.90 MG/DL Random Glucose 116 MG/DL Total Protein 8.3 GM/DL Albumin 4.1 GM/DL Calcium Level 9.1 MG/DL Alkaline Phosphatase 77 U/L Aspartate Amino Transf (AST/SGOT) 18 U/L Alanine Aminotransferase (ALT/SGPT) 21 U/L Total Bilirubin 0.3 MG/DL Sodium Level 137 MEQ/L Potassium Level 3.5 MEQ/L Chloride Level 103 MEQ/L Carbon Dioxide Level 22.3 MEQ/L Anion Gap 12 MEQ/L Estimat Glomerular Filtration Rate 67 ML/MIN Thyroid Stimulating Hormone 3rd Gen 1.420 uIU/ML MDM Medical Decision Making Medical Screen Exam Complete: Yes Emergency Medical Condition: Yes Differential Diagnosis Paranoid schizophrenia, medication noncompliance, depression, anxiety, substance use Narrative Course 47-year-old female presents emergency department as a Allen act with suicide ideations. Patient has a history of paranoid schizophrenia and believes that everyone else out to get her. She also says that she should be shot according to the Allen act. At this time, patient denies any suicidal or homicidal ideations. Denies hallucinations. Denies medical history or medication use. She denies fevers or chills. Denies illicit drug use. Vital signs stable. Physical exam findings demonstrate a well-developed, well-nourished disheveled 47-year-old female. Patient is medically cleared to see psych. Pending urinalysis and urine drug screen. Condition: Stable Lorraine Pearce March 26, 2018 17:11
[2018-03-26 17:26] LABS: AUTOMATED NEUTROPHIL # 8.2 TH/MM3 (1.8-7.7); BASOPHIL # 0.1 TH/MM3 (0-0.2); BASOPHIL % 0.7 % (0.0-2.0); EOSINOPHIL % 0.3 % (0.0-4.0); HEMATOCRIT 42.1 % (35.0-46.0); HEMOGLOBIN 14.4 GM/DL (11.6-15.3); LYMPH % 26.1 % (9.0-44.0); LYMPHOCYTE # 3.3 TH/MM3 (1.0-4.8); MEAN CELL VOLUME 91.1 FL (80.0-100.0); MEAN CORPUSCULAR HEMOGLOBIN 31.2 PG (27.0-34.0); MEAN CORPUSCULAR HGB CONC 34.3 % (32.0-36.0); MONO % 7.1 % (0.0-8.0); MONOCYTE # 0.9 TH/MM3 (0-0.9); NEUT % 65.8 % (16.0-70.0); PLATELET COUNT 360 TH/MM3 (150-450); RED BLOOD COUNT 4.62 MIL/MM3 (4.00-5.30); RED CELL DISTRIBUTION WIDTH 13.8 % (11.6-17.2); WHITE BLOOD COUNT 12.5 TH/MM3 (4.0-11.0)
[2018-03-26 17:47] LABS: ALT (GPT) 21 U/L (10-53)
[2018-03-26 17:52] LABS: ALBUMIN 4.1 GM/DL (3.4-5.0); AST (GOT) 18 U/L (15-37); BICARBONATE 22.3 MEQ/L (21.0-32.0); BLOOD UREA NITROGEN 7 MG/DL (7-18); CALCIUM 9.1 MG/DL (8.5-10.1); CHLORIDE 103 MEQ/L (98-107); GLOMERULAR FILTRATION RATE 67 ML/MIN (>89); GLUCOSE,RANDOM 116 MG/DL (74-106); SODIUM (NA) 137 MEQ/L (136-145)
[2018-03-26 17:57] LABS: ALKALINE PHOSPHATASE 77 U/L (45-117); TOTAL BILIRUBIN ADULT 0.3 MG/DL (0.2-1.0); TOTAL PROTEIN 8.3 GM/DL (6.4-8.2)
[2018-03-26 18:26] VITALS: BP 140/88; PULSE 119; RESP 18; TEMP 99.6; O2SAT 98
[2018-03-26 19:26] LABS: BILIRUBIN, URINE NEG (NEG); BLOOD, URINE MOD (NEG); CALCIUM OXALATE CRYSTALS,URINE RARE /hpf; GLUCOSE,URINE NEG (NEG); KETONE, URINE NEG (NEG); NITRITE,URINE NEG (NEG); SQUAMOUS EPITHELIAL CELL URINE 1 /hpf (0-5); URINE COLOR COLORLESS (YELLW/STRAW); URINE LEUKOCYTE ESTERASE NEG (NEG)
[2018-03-27 00:22] VITALS: BP 119/68; PULSE 82; RESP 18; O2SAT 96
[2018-03-27 06:14] VITALS: BP 117/80; PULSE 105; RESP 19; O2SAT 97
--- NOTE | 2018-03-27 08:44 | HHI.HP ---
Provisional Diagnosis Admission Date March 27, 2018 at 08:28 Rudolph I. 1. Schizophrenia, paranoid type, acute exacerbation Rudolph II. Deferred Certification of Person's Competence To Provide Express and Informed Consent I have personally examined Hetal Wong , a person being served at [facility] on, March 27, 2018 08:33. Express and informed consent means consent voluntarily given in writing, by a competent person, after sufficient explanation and disclosure of the subject matter involved to enable the person to make a knowing and willful decision without any element of force, fraud, deceit, duress, or other form of constraint or coercion. This person is 18 years of age or older, is not now known to be incompetent to consent to treatment with a guardian advocate, and does not have a health care surrogate or proxy currently making medical treatment decisions. I have found this person to be one of the following: [] Competent to provide express and informed consent, as defined above, for voluntary admission to this facility and is competent to provide express and informed consent for treatment. He/she has the consistent capacity to make well reasoned, willful, and knowing decisions concerning his or her medical or mental health treatment. The person fully and consistently understands the purpose of the admission for examination/placement and is fully capable of personally exercising all rights assured [place] Incompetent to provide express and informed consent to voluntary admission, and this is incompetent to provide express and informed consent to treatment. The person must be transferred to involuntary status and a petition for a guardian advocate filed with the Circuit Court. [x] Refusing to provide express and informed consent to voluntary admission but is competent to provide express and informed consent for treatment. The person must be discharged or transferred to involuntary status. Form shall be completed within 24 hours of a person's arrival at the receiving facility and filed in the clinical record of each person: 1. Admitted on a voluntary basis 2. Permitted to provide express and informed consent to his/her own treatment 3. Allowed to transfer from involuntary to voluntary status 4. Prior to permitting a person to consent to his or her own treatment after having been previously found incompetent to consent to treatment. History of Present Illness Capacity: Has Capacity (To consent for medication/treatment) Psych Chief Complaint: Psychosis HPI Ms. Wong is a 47-year-old female with a history of schizophrenia who presents under a Allen act by [place] [employer] alleging that the patient articulated a belief that people were coming to kill her. She told officers that ancestors of her family were coming to rape and kill her. Reviewing the electronic medical record, I see no previous psychiatric consultations or admissions within our system. Patient seen and examined. Chart reviewed. Case discussed with nursing staff in the J pod. On my examination this morning the patient presents as quite disheveled and dirty. She smells of urine. She is quite tearful and dysphoric. She tells me "everybody hates me." She tells me "yes, they are trying to kill me. They murdered my father and they know I know the truth." The patient alleges that her stepfather's family is out to kill her, although she readily admits that she has no evidence that this is so. In context, this belief seems likely to be delusional in nature. She tells me "I just feel that [they are trying to kill her]." She denies any suicidal or homicidal ideation but seems unreliable to contract for safety. When asked about audiovisual hallucinations she says "not really" but appears internally stimulated. Thought processes delayed with moderate thought blocking. No hypomanic or manic symptoms. Paranoia is present but no other delusional material. Remainder of the psychiatric ROS is negative. Patient complains of chronic neck and back pain. Otherwise no acute physical complaints. She is requesting discharge from the ED this morning although she says she feels safe in the hospital from her pursuers. Past psychiatric history: Patient has a history of schizophrenia. She is not under the care of a psychiatrist. Most recent admission was to [facility] although she cannot remember when. She does endorse a history of 1 previous suicide attempt on although she cannot remember the year. Family history: The patient denies any family history of mental illness. Chemical dependency history: The patient denies any history of abuse of drugs or alcohol. Social history: The patient reports that she is presently homeless. She has 11 grade education. 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 She has children but says that her has kidnapped them. Unclear if this is reality based or not. Denies any access to guns or firearms. Denies any history of abuse or mistreatment except as detailed above. I called over to [facility] to obtain patient's most recent medication list. She follows with [facility] and was prescribed Risperdal Consta 50 mg every 2 weeks most recently in January,. She also has previously been prescribed Prozac 20 mg but has not been ordered this since November. Review of Systems ROS Limitations: Psychotic, Poor Historian Except as stated in HPI: all other systems reviewed are Neg Past Family Social History Coded Allergies: penicillin G (Unverified Allergy, Mild, RASH, 06/13/17) *MDRO Multi-Drug Resistant Organism (Verified Adverse Reaction, Unknown, MRSA, 03/28/17) MRSA (arm wound) - 03/25/17 Past Medical History Patient reports chronic back and neck pain. No other medical issues reported. Patient takes no home medications. No Active Prescriptions or Reported Meds Patient's Strengths (min. 2) In a monitored setting. Verbally fluent. Physical Exam Physical examination was completed by the ED provider. On my examination today , the patient appears to be in no acute physical distress. No motor abnormalities noted. Labs and vitals reviewed: Vital Signs Vital Signs Date Time Temp Pulse Resp B/P (MAP) Pulse Ox O2 Delivery O2 Flow Rate FiO2 03/27/18 06:14 105 19 117/80 (92) 97 Room Air 03/26/18 18:26 99.6 Lab Results Test 03/26/18 17:06 03/26/18 18:20 White Blood Count 12.5 TH/MM3 Red Blood Count 4.62 MIL/MM3 Hemoglobin 14.4 GM/DL Hematocrit 42.1 % Mean Corpuscular Volume 91.1 FL Mean Corpuscular Hemoglobin 31.2 PG Mean Corpuscular Hemoglobin Concent 34.3 % Red Cell Distribution Width 13.8 % Platelet Count 360 TH/MM3 Mean Platelet Volume 10.0 FL Neutrophils (%) (Auto) 65.8 % Lymphocytes (%) (Auto) 26.1 % Monocytes (%) (Auto) 7.1 % Eosinophils (%) (Auto) 0.3 % Basophils (%) (Auto) 0.7 % Neutrophils # (Auto) 8.2 TH/MM3 Lymphocytes # (Auto) 3.3 TH/MM3 Monocytes # (Auto) 0.9 TH/MM3 Eosinophils # (Auto) 0.0 TH/MM3 Basophils # (Auto) 0.1 TH/MM3 CBC Comment DIFF FINAL Differential Comment Blood Urea Nitrogen 7 MG/DL Creatinine 0.90 MG/DL Random Glucose 116 MG/DL Total Protein 8.3 GM/DL Albumin 4.1 GM/DL Calcium Level 9.1 MG/DL Alkaline Phosphatase 77 U/L Aspartate Amino Transf (AST/SGOT) 18 U/L Alanine Aminotransferase (ALT/SGPT) 21 U/L Total Bilirubin 0.3 MG/DL Sodium Level 137 MEQ/L Potassium Level 3.5 MEQ/L Chloride Level 103 MEQ/L Carbon Dioxide Level 22.3 MEQ/L Anion Gap 12 MEQ/L Estimat Glomerular Filtration Rate 67 ML/MIN Thyroid Stimulating Hormone 3rd Gen 1.420 uIU/ML Urine Color COLORLESS Urine Turbidity CLEAR Urine pH 6.0 Urine Specific Welch 1.001 Urine Protein NEG mg/dL Urine Glucose (UA) NEG mg/dL Urine Ketones NEG mg/dL Urine Occult Blood MOD Urine Nitrite NEG Urine Bilirubin NEG Urine Urobilinogen LESS THAN 2.0 MG/DL Urine Leukocyte Esterase NEG Urine RBC LESS THAN 1 /hpf Urine WBC LESS THAN 1 /hpf Urine Squamous Epithelial Cells 1 /hpf Urine Calcium Oxalate Crystals RARE /hpf Microscopic Urinalysis Comment CULT NOT INDICATED Urine Opiates Screen NEG Urine Barbiturates Screen NEG Urine Amphetamines Screen NEG Urine Benzodiazepines Screen NEG Urine Cocaine Screen NEG Urine Cannabinoids Screen NEG Mild leukocytosis. Mildly decreased GFR. Mental Status Examination Appearance: Dirty, Disheveled, Malodorous Consciousness: Alert Orientation: x4 Motor Activity: Other (No motor abnormalities noted) Speech: Unremarkable Language: Other (Somewhat rambling) Fund of Knowledge: Adequate Attention and Concentration: Easily Distracted Memory: Impaired (Suspect psychosis interferes) Mood: Other (Dysphoric) Affect: Other (Tearful and restricted) Thought Process & Associations: Other (Delayed) Thought Content: Thought blocking, Delusional Hallucination Type: Other (Appears internally stimulated) Delusion Type: Paranoid Suicidal Ideation: No (Unreliable to contract for safety) Suicidal Plan: No Suicidal Intention: No Homicidal Ideation: No Homicidal Plan: No Homicidal Intention: No Insight: Poor Judgment: Poor Assessment & Plan Problem List: (1) Paranoid schizophrenia, chronic condition with acute exacerbation ICD Codes: F20.0 - Paranoid schizophrenia Assessment & Plan 47-year-old female with psychiatric history as detailed above who presents under Allen act by law enforcement. On my examination today, the patient presents as quite dirty and disheveled with an obvious self-care deficit. She endorses probable paranoid delusions. Medication nonadherence is suspected since the patient likely has not received Risperdal Consta injection since January of this year. I will plan to admit the patient to the inpatient psychiatric unit for observation and stabilization. Admit inpatient. Patient is declining to consent for voluntary admission. Involuntary status. I have completed first opinion. Consult for second opinion. Patient retains capacity to consent for medications. I will resume Risperdal M tabs 1 mg twice daily. To consider transitioning back to long- acting injectable Risperdal or perhaps Invega. Ativan as needed for anxiety, Cogentin as needed for EPS, Benadryl as needed for sleep. Check EKG for QTc. Check a beta hCG. Check BMP, CBC, hemoglobin A1c and lipid panel in the morning. Vitals every shift. Counselor to see. Collateral information. Disposition planning. Estimated length of stay: 5-7 days. Discharge Planning Pending psychiatric stabilization Request HC Surrog/Guard Advoc?: No (Not at this time) Fletcher Rios MD March 27, 2018 08:44
[2018-03-27] MEDS ORDERED: BENZTROPINE MESYLATE 2 MG/2 ML VIAL IM PRN (08:45)
[2018-03-27] MEDS ORDERED: ALUMINUM/MAGNESIUM/SIMETH 30 ML CUP PO PRN (08:45)
[2018-03-27] MEDS ORDERED: MAGNESIUM HYDROXIDE SUSP 30 ML CUP PO PRN (08:45)
[2018-03-27] MEDS ORDERED: NICOTINE 21 MG/24 HR PATCH T-DERMAL PRN (08:45)
[2018-03-27] MEDS ORDERED: BENZTROPINE MESYLATE 1 MG TAB PO PRN (08:45)
[2018-03-27] MEDS ORDERED: LORazepam 2 MG/ML VIAL IM PRN (08:45)
[2018-03-27] MEDS ORDERED: REMOVE OLD PATCH T-DERMAL PRN (08:45)
[2018-03-27] MEDS ORDERED: LORazepam 1 MG TAB PO PRN (08:45)
[2018-03-27] MEDS: risperiDONE ODT 1 MG TAB PO SCH ×2 (09:00→21:11)
[2018-03-27 11:00] VITALS: BP 98/55; PULSE 95; RESP 18
[2018-03-27 15:06] VITALS: BP 136/92; PULSE 94; RESP 20; TEMP 98.6; O2SAT 92
[2018-03-27 17:43] VITALS: BP 118/69; PULSE 87; RESP 18; TEMP 97.8; O2SAT 99
[2018-03-27] MEDS: ACETAMINOPHEN 325 MG TAB PO PRN (21:11)
[2018-03-28 06:31] VITALS: BP 118/56; PULSE 88; RESP 17; TEMP 98.2; O2SAT 97
[2018-03-28] MEDS: risperiDONE ODT 1 MG TAB PO SCH ×2 (08:52→21:36)
[2018-03-28 17:57] VITALS: BP 132/61; PULSE 102; RESP 16; TEMP 97.5; O2SAT 98
--- NOTE | 2018-03-28 18:22 | PD.PSY.CON ---
Provisional Diagnosis Admission Date March 27, 2018 at 08:28 [place] I. 1. Schizophrenia, paranoid type, acute exacerbation [place] II. Deferred History of Present Illness Service Psychiatry Consult Requested By Dr. Rios Reason for Consult Second opinion Primary Care Physician No Primary Care Physician HPI Ms. Wong is a 47-year-old female with a history of schizophrenia who presents under a [place] act by [place] [employer] alleging that the patient articulated a belief that people were coming to kill her. She told officers that ancestors of her family were coming to rape and kill her. Reviewing the electronic medical record, I see no previous psychiatric consultations or admissions within our system. Patient seen and examined. Chart reviewed. Case discussed with nursing staff in the J pod. On my examination this morning the patient presents as quite disheveled and dirty. She smells of urine. She is quite tearful and dysphoric. She tells me "everybody hates me." She tells me "yes, they are trying to kill me. They murdered my father and they know I know the truth." The patient alleges that her stepfather's family is out to kill her, although she readily admits that she has no evidence that this is so. In context, this belief seems likely to be delusional in nature. She tells me "I just feel that [they are trying to kill her]." She denies any suicidal or homicidal ideation but seems unreliable to contract for safety. When asked about audiovisual hallucinations she says "not really" but appears internally stimulated. Thought processes delayed with moderate thought blocking. No hypomanic or manic symptoms. Paranoia is present but no other delusional material. Remainder of the psychiatric ROS is negative. Patient complains of chronic neck and back pain. Otherwise no acute physical complaints. She is requesting discharge from the ED this morning although she says she feels safe in the hospital from her pursuers. Past psychiatric history: Patient has a history of schizophrenia. She is not under the care of a psychiatrist. Most recent admission was to [facility] although she cannot remember when. She does endorse a history of 1 previous suicide attempt on although she cannot remember the year. Family history: The patient denies any family history of mental illness. Chemical dependency history: The patient denies any history of abuse of drugs or alcohol. Social history: The patient reports that she is presently homeless. She has 1/ 11 grade education. 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 She has children but says that her has kidnapped them. Unclear if this is reality based or not. Denies any access to guns or firearms. Denies any history of abuse or mistreatment except as detailed above. I called over to [facility] to obtain patient's most recent medication list. She follows with [facility] and was prescribed Risperdal Consta 50 mg every 2 weeks most recently in January,. She also has previously been prescribed Prozac 20 mg but has not been ordered this since November. 03/28/18 -second opinion Patient is a 47-year-old woman, states being domiciled with mother and brother but previously reported being homeless, reports that she has 4 children and currently under the care of her , with a past psychiatric history of schizophrenia, previous psychiatric admissions, one previous suicide attempt was brought in under [place] act by police which patient endorsed that people were coming to kill her and did answer she was becoming to rape and kill her which patient was admitted to the inpatient psychiatry for further evaluation and management. Patient was found sitting hospital bed noted B, superficial cooperative interview today. Patient states that she is here in hospital because she was not feeling good states that there was something going on her house which she denies elated report that she was "naked and running around". She states that her neighbor had called the police which brought her here. She mentions that she lives with her mother and brother and that she had gone over to her friend's home which police was called but was not able to elaborate why friend feel concern to call the police. Patient states that she had been receiving medications "injection" through her outpatient provider was not able to recall which medications they were and states that they were for depression. Currently patient reports feeling "fine" denying any perceptional services at this time but states that she is feeling paranoid of "everyone". Past Family Social History Coded Allergies: penicillin G (Unverified Allergy, Mild, RASH, 06/13/17) *MDRO Multi-Drug Resistant Organism (Verified Adverse Reaction, Unknown, MRSA, 03/28/17) MRSA (arm wound) - 03/25/17 No Active Prescriptions or Reported Meds Current Medications Medications (Trade) Dose Ordered Sig/Raven Route Start Time Stop Time Status Last Admin (Ativan) 1 mg Q6H PRN PO 03/27/18 08:45 (Ativan Inj) 1 mg Q6H PRN IM 03/27/18 08:45 (Benadryl) 50 mg HS PRN PO 03/27/18 08:45 (Tylenol) 650 mg Q4H PRN PO 03/27/18 08:45 03/27/18 21:11 (Milk Of Magnesia Liq) 30 ml DAILY PRN PO 03/27/18 08:45 (Mag-Al Plus Susp Liq) 30 ml Q6H PRN PO 03/27/18 08:45 (Habitrol 21 Mg Patch.24 Hr) 1 patch DAILY PRN T-DERMAL 03/27/18 08:45 (Cogentin) 1 mg Q12H PRN PO 03/27/18 08:45 (Cogentin Inj) 1 mg Q12H PRN IM 03/27/18 08:45 (risperDAL M-TAB) 1 mg Q12HR PO 03/27/18 09:00 03/28/18 08:52 Miscellaneous Information 1 DAILY PRN T-DERMAL 03/27/18 08:45 Patient's Strengths (min. 2) In a monitored setting. Verbally fluent. Physical Exam Vital Signs Vital Signs Date Time Temp Pulse Resp B/P (MAP) Pulse Ox O2 Delivery O2 Flow Rate FiO2 03/28/18 17:57 97.5 102 16 132/61 (84) 98 03/27/18 11:00 Room Air Mental Status Examination Appearance: Dirty, Disheveled, Malodorous Consciousness: Alert Orientation: x4 Motor Activity: Other (No motor abnormalities noted) Speech: Unremarkable Language: Other (Somewhat rambling) Fund of Knowledge: Adequate Attention and Concentration: Easily Distracted Memory: Impaired (Suspect psychosis interferes) Mood: Other (Dysphoric) Affect: Blunt Thought Process & Associations: Other (Delayed) Thought Content: Thought blocking, Delusional Hallucination Type: Other (Appears internally stimulated) Delusion Type: Paranoid Suicidal Ideation: No (Unreliable to contract for safety) Suicidal Plan: No Suicidal Intention: No Homicidal Ideation: No Homicidal Plan: No Homicidal Intention: No Insight: Poor Judgment: Poor Assessment & Plan Problem List: (1) Paranoid schizophrenia, chronic condition with acute exacerbation ICD Codes: F20.0 - Paranoid schizophrenia Assessment & Plan I have seen and examined this patient, reviewed the documentation, and I agree and concur with Dr. Rios assessment and plan. Consult appreciated. Patient this time noted to be disorganized, thought blocking, internally preoccupied continues require inpatient psychiatric stabilization. We will continue risperidone 1 mg p.o. twice daily with upper titration as needed for psychosis. We will continue to monitor mood and behavior. Discharge planning in progress. Discharge Planning To be determined. Request HC Surrog/Guard Advoc?: No (Not at this time) Km Burris MD March 28, 2018 18:22
[2018-03-29 06:08] VITALS: BP 124/77; PULSE 105; RESP 16; TEMP 97.8; O2SAT 95
[2018-03-29] MEDS: ACETAMINOPHEN 325 MG TAB PO PRN ×2 (06:25→18:15)
[2018-03-29 06:34] VITALS: BP 124/77; PULSE 80
[2018-03-29] MEDS: risperiDONE ODT 1 MG TAB PO SCH ×2 (08:50→21:10)
--- NOTE | 2018-03-29 16:11 | HHI.PYPN ---
Subjective Chief Complaint: Psychosis Remarks Patient seen and examined with nurse in coverage for Dr. Burris. Chart reviewed. Case discussed with nursing staff who reports patient is tearful and still paranoid. On my examination today, the patient presents as floridly psychotic. Affect is decidedly irritable. She asks me, "who is this Dr. Sharma? I been called Pramodmanuelrocael Sharma all my life." She apparently believes that there is some female who is out to get her, and she tells this provider "you're probably on her side." She denies AVH but appears frankly internally stimulated. Denies SI or HI but seems unreliable to contract for safety. No side effects from medications. No physical complaints. Asking about discharge, and I provided her with education regarding her legal status and the [place] act court. Review of Systems ROS Limitations: Uncooperative, Psychotic, Poor Historian Except as stated in HPI: all other systems reviewed are Neg Mental Status Examination Appearance: Disheveled Consciousness: Alert Orientation: Person, Place (At least) Motor Activity: Other (No tremor, no dystonia, no dyskinesia noted) Speech: Unremarkable Language: Other (Rambling) Fund of Knowledge: Adequate Attention and Concentration: Easily Distracted Memory: Impaired (Psychosis interferes) Mood: Irritable, Other (Dysphoric) Affect: Other (Restricted) Thought Process & Associations: Tangential Thought Content: Hallucinations, Delusional Hallucination Type: Other (Internally preoccupied) Delusion Type: Paranoid Suicidal Ideation: No (Unreliable to contract for safety) Homicidal Ideation: No Insight: Poor Judgment: Poor Results Labs Laboratories ordered yesterday are listed as "in process" and were possibly refused by patient. I have reordered these for tomorrow morning. EKG was canceled as "timed out." I have reordered this as well. Vitals/IOs Vital Signs Date Time Temp Pulse Resp B/P (MAP) Pulse Ox O2 Delivery O2 Flow Rate FiO2 03/29/18 06:34 80 124/77 (93) 03/29/18 06:08 97.8 16 95 03/27/18 11:00 Room Air Assessment & Plan Problem List: (1) Paranoid schizophrenia, chronic condition with acute exacerbation ICD Codes: F20.0 - Paranoid schizophrenia Assessment & Plan Patient remains exceedingly psychotic. She is presently maintaining on the lower acuity unit but may ultimately require transfer to the higher acuity unit. Case discussed with RN. Titrate Risperdal to 2 mg twice daily to target psychotic symptoms. I have reordered an EKG and laboratories. Continue to monitor on the inpatient unit. Continue other medications and care as ordered. Justification for Cont. Inpt. Medication changes. Impairment in reality construction. High risk for decompensation in less restrictive environment. Discharge Planning Per Dr. Burris Request HC Surrog/Guard Advoc?: No (Not at this time) Fletcher Rios MD March 29, 2018 16:11
[2018-03-29 17:53] VITALS: BP 137/75; PULSE 95; RESP 17; TEMP 97.7; O2SAT 99
[2018-03-30 05:17] VITALS: PULSE 79; RESP 16; TEMP 98.2; O2SAT 96
[2018-03-30] MEDS: risperiDONE ODT 1 MG TAB PO SCH (08:19)
--- NOTE | 2018-03-30 14:58 | EKG ---
Date Performed: 03/29/2018 Time Performed: 19:16:33 PTAGE: 47 years EKG: Sinus rhythm NORMAL ECG NO PREVIOUS TRACING DOCTOR: Matty Lucio Interpretating Date/Time 03/30/2018 14:53:49
[2018-03-30 16:59] VITALS: BP 125/70; PULSE 99; RESP 16; TEMP 98.1; O2SAT 98
--- NOTE | 2018-03-30 18:22 | HHI.PYPN ---
Subjective Chief Complaint: Psychosis Remarks Patient seen for follow-up, chart reviewed. Discussion with nursing staff reported that the patient seclusive, disheveled. Patient found participating in group activity. She is noted to have paranoia, stating "I feel like I have enemies" with no one in particular but later states that her brother and her girlfriend are against her. She reports sleeping well, mood being "good", continues with AH telling her derogatory comments. She states that the AH occur more when she is around her brother. She states having spoken to her mother, Renetta Jason [phone], and was told that she could stay with her mother upon discharge. Review of Systems Except as stated in HPI: all other systems reviewed are Neg Mental Status Examination Appearance: Disheveled Consciousness: Alert Orientation: Person, Place (At least) Motor Activity: Other (No tremor, no dystonia, no dyskinesia noted) Speech: Unremarkable Language: Other (Rambling) Fund of Knowledge: Adequate Attention and Concentration: Easily Distracted Memory: Impaired (Psychosis interferes) Mood: Irritable, Other (Dysphoric) Affect: Other (Restricted) Thought Process & Associations: Tangential Thought Content: Hallucinations, Delusional Hallucination Type: Other (Internally preoccupied) Delusion Type: Paranoid Suicidal Ideation: No (Unreliable to contract for safety) Homicidal Ideation: No Insight: Poor Judgment: Poor Results Vitals/IOs Vital Signs Date Time Temp Pulse Resp B/P (MAP) Pulse Ox O2 Delivery O2 Flow Rate FiO2 03/30/18 16:59 98.1 99 16 125/70 (88) 98 03/27/18 11:00 Room Air Assessment & Plan Problem List: (1) Paranoid schizophrenia, chronic condition with acute exacerbation ICD Codes: F20.0 - Paranoid schizophrenia Assessment & Plan Patient continues with paranoid ideations, AH, with poor upkeep of hygiene but less seclusive now and participating in groups. Will increase risperidone to 2mg a.m./3mg HS, continue rest of medications. Continue to monitor mood and behavior. Discharge planning in progress. Justification for Cont. Inpt. At risk for further decompensation at lower level of care. Discharge Planning To be determined Request HC Surrog/Guard Advoc?: No (Not at this time) Km Burris MD Mar 30, 2018 18:22
[2018-03-30] MEDS: risperiDONE 3 MG TAB PO SCH (21:27)
[2018-03-30] MEDS: ACETAMINOPHEN 325 MG TAB PO PRN (22:14)
[2018-03-31 06:00] VITALS: BP 100/58; PULSE 85; RESP 18; TEMP 98.2; O2SAT 98
[2018-03-31 08:39] LABS: BASOPHIL % 0.6 % (0.0-2.0); EOSINOPHIL # 0.1 TH/MM3 (0-0.4); EOSINOPHIL % 2.7 % (0.0-4.0); HEMATOCRIT 47.1 % (35.0-46.0); HEMOGLOBIN 16.1 GM/DL (11.6-15.3); LYMPH % 47.3 % (9.0-44.0); LYMPHOCYTE # 2.1 TH/MM3 (1.0-4.8); MEAN CORPUSCULAR HEMOGLOBIN 30.8 PG (27.0-34.0); MEAN CORPUSCULAR HGB CONC 34.2 % (32.0-36.0); MEAN PLATELET VOLUME 10.1 FL (7.0-11.0); MONO % 5.4 % (0.0-8.0); MONOCYTE # 0.2 TH/MM3 (0-0.9); PLATELET COUNT 169 TH/MM3 (150-450); RED BLOOD COUNT 5.23 MIL/MM3 (4.00-5.30); RED CELL DISTRIBUTION WIDTH 13.9 % (11.6-17.2); WHITE BLOOD COUNT 4.5 TH/MM3 (4.0-11.0)
[2018-03-31 08:41] LABS: BICARBONATE 22.4 MEQ/L (21.0-32.0); BLOOD UREA NITROGEN 10 MG/DL (7-18); CALCIUM 8.1 MG/DL (8.5-10.1); CHLORIDE 108 MEQ/L (98-107); CHOLESTEROL 154 MG/DL (120-200); CREATININE 0.68 MG/DL (0.50-1.00); GLOMERULAR FILTRATION RATE 93 ML/MIN (>89); GLUCOSE,RANDOM 92 MG/DL (74-106); SODIUM (NA) 141 MEQ/L (136-145); TRIGLYCERIDES 80 MG/DL (42-150)
[2018-03-31 08:43] LABS: CHOLESTEROL/ HDL RATIO 3.85 RATIO; HDL CHOLESTEROL 39.9 MG/DL (40.0-60.0); LDL CHOLESTEROL 98 MG/DL (0-99)
[2018-03-31] MEDS: risperiDONE ODT 1 MG TAB PO SCH (09:15)
--- NOTE | 2018-03-31 13:49 | HHI.PYPN ---
Subjective Chief Complaint: Psychosis Remarks Patient was seen and case discussed with nursing. Patient continues to be quite psychotic. She has a fixed delusion that her dad and sisters have the ability to kill her. She believes that they can even get her while she is here in the unit. She denies auditory hallucinations but is likely responding to internal stimuli. Insight is quite poor. Per nursing she was "labile this morning." He is compliant with her medications. Denies suicidal or homicidal ideation intent or plan Mental Status Examination Appearance: Disheveled Consciousness: Alert Orientation: Person, Place (At least) Motor Activity: Other (No tremor, no dystonia, no dyskinesia noted) Speech: Unremarkable Language: Other (Rambling) Fund of Knowledge: Adequate Attention and Concentration: Easily Distracted Memory: Impaired (Psychosis interferes) Mood: Irritable, Other (Dysphoric) Affect: Other (Restricted) Thought Process & Associations: Tangential Thought Content: Hallucinations, Delusional Hallucination Type: Other (Internally preoccupied) Delusion Type: Paranoid Suicidal Ideation: No (Unreliable to contract for safety) Suicidal Plan: No Suicidal Intention: No Homicidal Ideation: No Insight: Poor Judgment: Poor Results Labs Test 03/31/18 07:16 White Blood Count 4.5 TH/MM3 Red Blood Count 5.23 MIL/MM3 Hemoglobin 16.1 GM/DL Hematocrit 47.1 % Mean Corpuscular Volume 90.0 FL Mean Corpuscular Hemoglobin 30.8 PG Mean Corpuscular Hemoglobin Concent 34.2 % Red Cell Distribution Width 13.9 % Platelet Count 169 TH/MM3 Mean Platelet Volume 10.1 FL Neutrophils (%) (Auto) 44.0 % Lymphocytes (%) (Auto) 47.3 % Monocytes (%) (Auto) 5.4 % Eosinophils (%) (Auto) 2.7 % Basophils (%) (Auto) 0.6 % Neutrophils # (Auto) 2.0 TH/MM3 Lymphocytes # (Auto) 2.1 TH/MM3 Monocytes # (Auto) 0.2 TH/MM3 Eosinophils # (Auto) 0.1 TH/MM3 Basophils # (Auto) 0.0 TH/MM3 CBC Comment DIFF FINAL Differential Comment Hematology Comments Blood Urea Nitrogen 10 MG/DL Creatinine 0.68 MG/DL Random Glucose 92 MG/DL Calcium Level 8.1 MG/DL Sodium Level 141 MEQ/L Potassium Level 4.1 MEQ/L Chloride Level 108 MEQ/L Carbon Dioxide Level 22.4 MEQ/L Anion Gap 11 MEQ/L Estimat Glomerular Filtration Rate 93 ML/MIN Triglycerides Level 80 MG/DL Cholesterol Level 154 MG/DL LDL Cholesterol 98 MG/DL HDL Cholesterol 39.9 MG/DL Cholesterol/HDL Ratio 3.85 RATIO Vitals/IOs Vital Signs Date Time Temp Pulse Resp B/P (MAP) Pulse Ox O2 Delivery O2 Flow Rate FiO2 03/31/18 06:00 98.2 85 18 100/58 (72) 98 03/27/18 11:00 Room Air Assessment & Plan Problem List: (1) Paranoid schizophrenia, chronic condition with acute exacerbation ICD Codes: F20.0 - Paranoid schizophrenia Assessment & Plan Continue current treatment plan Justification for Cont. Inpt. Patient would decompensate in a less restrictive setting Request HC Surrog/Guard Advoc?: No (Not at this time) Des Hassan DO Mar 31, 2018 13:49
[2018-03-31] MEDS: ACETAMINOPHEN 325 MG TAB PO PRN (14:43)
[2018-03-31 18:20] VITALS: BP 134/86; PULSE 102; RESP 16; TEMP 98.4; O2SAT 98
[2018-03-31] MEDS: risperiDONE 3 MG TAB PO SCH (20:11)
[2018-04-01 05:38] VITALS: BP 97/56; PULSE 88; RESP 16; TEMP 98; O2SAT 97
--- NOTE | 2018-04-01 08:48 | HHI.PYPN ---
Subjective Chief Complaint: Psychosis Remarks Patient was seen and case discussed with nursing. Patient continues to have her fixed delusion that her family members want to kill her. She describes a nightmare where she killed her brother's pet. She is compliant with medications for this poor insight into her admission. Mental Status Examination Appearance: Disheveled Consciousness: Alert Orientation: Person, Place (At least) Motor Activity: Other (No tremor, no dystonia, no dyskinesia noted) Speech: Unremarkable Language: Other (Rambling) Fund of Knowledge: Adequate Attention and Concentration: Easily Distracted Memory: Impaired (Psychosis interferes) Mood: Irritable, Other (Dysphoric) Affect: Other (Restricted) Thought Process & Associations: Tangential Thought Content: Hallucinations, Delusional Hallucination Type: Other (Internally preoccupied) Delusion Type: Paranoid Suicidal Ideation: No (Unreliable to contract for safety) Suicidal Plan: No Suicidal Intention: No Homicidal Ideation: No Insight: Poor Judgment: Poor Results Vitals/IOs Vital Signs Date Time Temp Pulse Resp B/P (MAP) Pulse Ox O2 Delivery O2 Flow Rate FiO2 04/01/18 05:38 98.0 88 16 97/56 (70) 97 Assessment & Plan Problem List: (1) Paranoid schizophrenia, chronic condition with acute exacerbation ICD Codes: F20.0 - Paranoid schizophrenia Assessment & Plan Continue current treatment plan Justification for Cont. Inpt. Patient would decompensate in a less restrictive setting Request HC Surrog/Guard Advoc?: No (Not at this time) Des Hassan DO Apr 01, 2018 08:48
[2018-04-01 09:38] LABS: HEMOGLOBIN A1C 5.7 % (4.3-6.0)
[2018-04-01] MEDS: risperiDONE ODT 1 MG TAB PO SCH (09:38)
[2018-04-01] MEDS: ACETAMINOPHEN 325 MG TAB PO PRN ×2 (15:45→20:28)
[2018-04-01 16:49] VITALS: BP 121/55; PULSE 99; RESP 16; TEMP 98.9; O2SAT 96
[2018-04-01] MEDS: risperiDONE 3 MG TAB PO SCH (20:27)
[2018-04-02 06:16] VITALS: BP 98/55; PULSE 78; RESP 17; TEMP 97.8; O2SAT 95
[2018-04-02] MEDS: risperiDONE ODT 1 MG TAB PO SCH (09:23)
[2018-04-02] MEDS: ACETAMINOPHEN 325 MG TAB PO PRN ×2 (11:14→21:19)
[2018-04-02 18:20] VITALS: BP 130/57; PULSE 92; RESP 16; TEMP 98.1; O2SAT 96
--- NOTE | 2018-04-02 18:22 | HHI.PYPN ---
Subjective Chief Complaint: Psychosis Remarks Patient seen for follow, chart reviewed. Discussion nursing staff reported the patient is pleasant, continues to be paranoid and continues to endorse bizarre delusions of persecution from her answers, to kill her. Patient was found lying hospital bed noted B, cooperative. Patient states that she is feeling "better", states having spoken with mother the phone and's stating that her mother is willing to have her stay with her upon discharge. She states that she continues to have auditory hallucinations of "P mocked" of several voices but no longer having command auditory hallucinations. Patient continues to state that they were "people from a stepfather side after me" stating that she "knows things" in terms of criminal activity. Patient also spoke of some discord with her brother who also lives with her mother. Patient states she has been improving in her personal hygiene and attending groups. Review of Systems Except as stated in HPI: all other systems reviewed are Neg Mental Status Examination Appearance: Appropriate, Other (In hospital [facility]) Consciousness: Alert Orientation: Person, Place (At least) Motor Activity: Normal gait, Other (No tremor, no dystonia, no dyskinesia noted ) Speech: Unremarkable Language: Adequate Fund of Knowledge: Adequate Attention and Concentration: Easily Distracted Memory: Impaired (Psychosis interferes) Mood: Appropriate Affect: Appropriate Thought Process & Associations: Other (Jenkins) Thought Content: Hallucinations, Delusional Hallucination Type: Auditory (Derogatory comments), Other (Internally preoccupied) Delusion Type: Paranoid, Other (Persecutory) Suicidal Ideation: No (Unreliable to contract for safety) Suicidal Plan: No Suicidal Intention: No Homicidal Ideation: No Homicidal Plan: No Homicidal Intention: No Insight: Poor Judgment: Poor Results Vitals/IOs Vital Signs Date Time Temp Pulse Resp B/P (MAP) Pulse Ox O2 Delivery O2 Flow Rate FiO2 04/02/18 06:16 97.8 78 17 98/55 (26) 95 Assessment & Plan Problem List: (1) Paranoid schizophrenia, chronic condition with acute exacerbation ICD Codes: F20.0 - Paranoid schizophrenia Assessment & Plan Patient this time continues to endorse auditory hallucinations of voices "mocking her", denying any command auditory hallucination to hurt himself, denies any suicidal homicidal ideations, continues to have paranoid and persecutory delusions of ancestors coming to kill her. We will continue to increase risperidone to 3 mg p.o. twice daily for psychosis, we will continue monitor mood and behavior. Patient's hygiene has improved and is attending groups. Collateral formation pending from patient's mother (Renetta Jason ). Discharge planning in progress. Justification for Cont. Inpt. At risk for further decompensation if at lower level of care Discharge Planning Patient possibly to be discharged to patient's mother's home Request HC Surrog/Guard Advoc?: No (Not at this time) Km Burris MD Apr 02, 2018 18:22
[2018-04-02] MEDS: risperiDONE 3 MG TAB PO SCH (21:19)
[2018-04-03 05:46] VITALS: BP 95/54; PULSE 85; RESP 16; TEMP 97.9; O2SAT 96
--- NOTE | 2018-04-03 08:22 | PD.TTN ---
Patient Problems 1. Discharge planning 2. Medication compliance 3. Knowledge deficit 4. Lack of coping skills Progress Toward Goals Provider Input: 04/02/18 Dr. Burris had his treatment team meeting to discuss patient's treatment plan, medication, and discharge plan. Patient's medication will be increased. Continue to treat Nurse(s) Input: 04/02/18 Patient's nurse reports patient is pleasant, very paranoid, delusional Psychiatric Counselors Present: Renetta Muñoz [facility] Psych Therapist Input: 04/02/18 Patient is pleasant, parnoid, exit seeking. Patient's medication has been increased. Group Spec/RT/OT/CUBA Present: Veronica Dan, GHANSHYAM, ROSA ELENA [place] Group Spec/RT/OT/CUBA Input: 04/02/18 Patient attends selective groups appropriately Renetta Muñoz [facility] Apr 03, 2018 08:22
[2018-04-03] MEDS: risperiDONE 3 MG TAB PO SCH ×2 (09:05→21:09)
[2018-04-03] MEDS: ACETAMINOPHEN 325 MG TAB PO PRN ×2 (13:57→21:11)
--- NOTE | 2018-04-03 17:30 | HHI.PYPN ---
Subjective Chief Complaint: Psychosis Remarks Patient seen for follow, chart reviewed. Discussion nursing staff reported the patient continues with flat affect, was noted to be tearful less evening stating that she misses her children continues to endorse bizarre thoughts to nursing staff, denying any suicidal homicidal ideations or perceptual services. Patient was found lying hospital bed asleep noted B, cooperative. Patient states that she is feeling "better" stating that she spoke with the mother the phone continues to have a plan to stay with her mother and attended the backyard. Patient states that she has been showering and taking care of hygiene , eating well along with adequate bowel movement. Patient continues to have auditory hallucinations which he last experienced yesterday and stated that it is getting better. Patient continues to endorse persecutory delusions of her answers are trying to come and kill her and states that she does not feel safe most of the time outside of the hospital and only feels that whenever she is with her mother. Review of Systems Except as stated in HPI: all other systems reviewed are Neg Mental Status Examination Appearance: Appropriate, Other (In hospital [facility]) Consciousness: Alert Orientation: Person, Place (At least) Motor Activity: Normal gait, Other (No tremor, no dystonia, no dyskinesia noted ) Speech: Unremarkable Language: Adequate Fund of Knowledge: Adequate Attention and Concentration: Easily Distracted Memory: Impaired (Psychosis interferes) Mood: Appropriate Affect: Appropriate Thought Process & Associations: Other ([place]) Thought Content: Hallucinations, Delusional Hallucination Type: Auditory (Denies today), Other (Internally preoccupied) Delusion Type: Paranoid (Lessening), Other (Persecutory) Suicidal Ideation: No (Unreliable to contract for safety) Suicidal Plan: No Suicidal Intention: No Homicidal Ideation: No Homicidal Plan: No Homicidal Intention: No Insight: Poor Judgment: Poor Results Vitals/IOs Vital Signs Date Time Temp Pulse Resp B/P (MAP) Pulse Ox O2 Delivery O2 Flow Rate FiO2 04/03/18 05:46 97.9 85 16 95/54 (68) 96 Intake and Output 04/03/18 04/03/18 04/04/18 08:00 16:00 00:00 Intake Total 360 ml Balance 360 ml Assessment & Plan Problem List: (1) Paranoid schizophrenia, chronic condition with acute exacerbation ICD Codes: F20.0 - Paranoid schizophrenia Assessment & Plan Patient continues to have bizarre paranoid and persecutory delusions of his answers after her to kill her, continues to have some paranoia but appears to be lessening as well as decreasing auditory hallucinations. Patient recently had Risperdal increased therefore we will continue current treatment that she is currently on risperidone 3 mg p.o. twice daily for psychosis, we will continue rest of medications. Continue to monitor mood and behavior. Collateral formation pending from patient's mother. Discharge planning a progress. Justification for Cont. Inpt. At risk of further decompensation a lower level of care. Discharge Planning To be determined. Request HC Surrog/Guard Advoc?: No (Not at this time) Km Burris MD Apr 03, 2018 17:30
[2018-04-03 17:57] VITALS: BP 112/72; PULSE 78; RESP 18; TEMP 98.2
[2018-04-03] MEDS: diphenhydrAMINE HCL 50 MG CAP PO PRN (21:09)
[2018-04-04 05:58] VITALS: BP 88/50; PULSE 67; RESP 16; TEMP 97.6; O2SAT 100
[2018-04-04] MEDS: risperiDONE 3 MG TAB PO SCH ×2 (08:16→20:52)
--- NOTE | 2018-04-04 14:34 | PD.TTN ---
Patient Problems 1. Discharge planning 2. Medication compliance 3. Knowledge deficit 4. Lack of coping skills Progress Toward Goals Provider Input: 04/02/18 Dr. Burris had his treatment team meeting to discuss patient's treatment plan, medication, and discharge plan. Patient's medication will be increased. Continue to treat 04/04/18 Patient doing better, medication compliant. Patient going to [place] [address] [facility] tomorrow. Nurse(s) Input: 04/02/18 Patient's nurse reports patient is pleasant, very paranoid, delusional 04/04/18/ Patient's nurse reports patient is doing well, medication compliant, paranoid, still delusional Psychiatric Counselors Present: Renetta Muñoz [facility] Psych Therapist Input: 04/02/18 Patient is pleasant, parnoid, exit seeking. Patient's medication has been increased. 04/04/18 Patient presented with anxiety, tearful, labile, cooperative but guarded, no insight, affect blunted. Speech disorganized, clear, and pressured, rambling. Group Spec/RT/OT/CUBA Present: Veronica Dan, GHANSHYAM, ROSA ELENA [place] Group Spec/RT/OT/CUBA Input: 04/02/18 Patient attends selective groups appropriately 04/04/18 Patient continues to attend selective groups appropriately. Renetta Muñoz [facility] Apr 04, 2018 14:34
--- NOTE | 2018-04-04 15:17 | HHI.PYPN ---
Subjective Chief Complaint: Psychosis Remarks Patient seen for follow, chart reviewed. Discussion nursing staff reported the patient continues with bizarre delusions of persecution and paranoia, continues to be isolative, calm and cooperative with no behavioral disturbances. Patient was found lying hospital bed noted B, cooperative. Patient states that she has not been attending groups, but has been showering eating and drinking well. Patient continues to endorse auditory hallucinations but states that she can block them out whenever she is in bed but yet has been mostly in bed most of the day. Patient states that she was not sure when she had less experience the auditory hallucinations. Patient describes him as "some that bother me in some that do not" stating that the voices that bother her and not recurred since admission but continues to hear voices that do not bother her when she last heard yesterday. Patient states that she wants to be able to go back to work and return to mother's home yet she continues to report discord between her and her brother. She states that she had called her mother yesterday which she was then passed to speak with her brother which did not turning machine operator helper to be a good conversation as per patient. She also continues to report believing that her father was murdered and of those people are after her and possibly get to her through her brother. Review of Systems Except as stated in HPI: all other systems reviewed are Neg Mental Status Examination Appearance: Appropriate, Other (In [facility]) Consciousness: Alert Orientation: Person, Place (At least) Motor Activity: Normal gait, Other (No tremor, no dystonia, no dyskinesia noted ) Speech: Unremarkable Language: Adequate Fund of Knowledge: Adequate Attention and Concentration: Easily Distracted Memory: Impaired (Psychosis interferes) Mood: Appropriate Affect: Appropriate Thought Process & Associations: Other ([place]) Thought Content: Hallucinations, Delusional Hallucination Type: Auditory (Denies today), Other (Internally preoccupied) Delusion Type: Paranoid (Lessening), Other (Persecutory) Suicidal Ideation: No (Unreliable to contract for safety) Suicidal Plan: No Suicidal Intention: No Homicidal Ideation: No Homicidal Plan: No Homicidal Intention: No Insight: Poor Judgment: Poor Results Vitals/IOs Vital Signs Date Time Temp Pulse Resp B/P (MAP) Pulse Ox O2 Delivery O2 Flow Rate FiO2 04/04/18 05:58 97.6 67 16 88/50 (88) 100 Assessment & Plan Problem List: (1) Paranoid schizophrenia, chronic condition with acute exacerbation ICD Codes: F20.0 - Paranoid schizophrenia Assessment & Plan Patient this time continues to endorse auditory hallucinations but no longer derogatory. Patient continues to have paranoid persecutory delusions from certain people that she believes part of her father and also after her. Patient appears to have some improvement with less intense and less frequent auditory hallucinations and softening of delusions. We will continue current treatment for now will continue monitor mood and behavior. If response continues to be limited we will consider switching to a different antipsychotic. Attempts have been made to contact patient's mother but unable to leave voicemail as voicemail box has not been available. Collateral information pending from patient's mother as patient has a speaking with her over the phone to assess patient's baseline. We will continue to monitor mood and behavior. Discharge planning in progress. Justification for Cont. Inpt. At risk of further decompensation at lower level of care. Discharge Planning Possibly return to her mother's residence. Request HC Surrog/Guard Advoc?: No (Not at this time) Km Burris MD Apr 04, 2018 15:17
[2018-04-04 17:39] VITALS: BP 119/72; PULSE 79; RESP 18; TEMP 98.3; O2SAT 99
[2018-04-04] MEDS: diphenhydrAMINE HCL 50 MG CAP PO PRN (20:53)
[2018-04-05 06:05] VITALS: BP 109/65; PULSE 75; RESP 16; TEMP 98.1; O2SAT 97
[2018-04-05] MEDS: risperiDONE 3 MG TAB PO SCH (08:24)
[2018-04-05] MEDS: ACETAMINOPHEN 325 MG TAB PO PRN (09:34)
[2018-04-05] MEDS ORDERED: RISP3 PO (09:49)
--- NOTE | 2018-04-05 09:49 | HHI.DS ---
Psychiatry Discharge Summary Inpatient Psychiatric care?: Yes Advance Directive: No Reason Not Provided: Due to Patient Condition Mental Health AdvanceDirective: No Health Care Proxy: No Admission Admission Date March 27, 2018 at 08:28 Admission Diagnosis: (1) Paranoid schizophrenia, chronic condition with acute exacerbation ICD Code: F20.0 - Paranoid schizophrenia Brief History Ms. Wong is a 47-year-old female with a history of schizophrenia who presents under a [place] by [place] [employer] alleging that the patient articulated a belief that people were coming to kill her. She told officers that ancestors of her family were coming to rape and kill her. Reviewing the electronic medical record, I see no previous psychiatric consultations or admissions within our system. Patient seen and examined. Chart reviewed. Case discussed with nursing staff in the J pod. On my examination this morning the patient presents as quite disheveled and dirty. She smells of urine. She is quite tearful and dysphoric. She tells me "everybody hates me." She tells me "yes, they are trying to kill me. They murdered my father and they know I know the truth." The patient alleges that her stepfather's family is out to kill her, although she readily admits that she has no evidence that this is so. In context, this belief seems likely to be delusional in nature. She tells me "I just feel that [they are trying to kill her]." She denies any suicidal or homicidal ideation but seems unreliable to contract for safety. When asked about audiovisual hallucinations she says "not really" but appears internally stimulated. Thought processes delayed with moderate thought blocking. No hypomanic or manic symptoms. Paranoia is present but no other delusional material. Remainder of the psychiatric ROS is negative. Patient complains of chronic neck and back pain. Otherwise no acute physical complaints. She is requesting discharge from the ED this morning although she says she feels safe in the hospital from her pursuers. Past psychiatric history: Patient has a history of schizophrenia. She is not under the care of a psychiatrist. Most recent admission was to [facility] although she cannot remember when. She does endorse a history of 1 previous suicide attempt on although she cannot remember the year. Family history: The patient denies any family history of mental illness. Chemical dependency history: The patient denies any history of abuse of drugs or alcohol. Social history: The patient reports that she is presently homeless. She has 1/ 11 grade education. 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 She has children but says that her has kidnapped them. Unclear if this is reality based or not. Denies any access to guns or firearms. Denies any history of abuse or mistreatment except as detailed above. I called over to [facility] to obtain patient's most recent medication list. She follows with [facility] and was prescribed Risperdal Consta 50 mg every 2 weeks most recently in January,. She also has previously been prescribed Prozac 20 mg but has not been ordered this since November. 03/28/18 -second opinion Patient is a 47-year-old woman, states being domiciled with mother and brother but previously reported being homeless, reports that she has 4 children and currently under the care of her , with a past psychiatric history of schizophrenia, previous psychiatric admissions, one previous suicide attempt was brought in under [place] by police which patient endorsed that people were coming to kill her and did answer she was becoming to rape and kill her which patient was admitted to the inpatient psychiatry for further evaluation and management. Patient was found sitting hospital bed noted B, superficial cooperative interview today. Patient states that she is here in hospital because she was not feeling good states that there was something going on her house which she denies elated report that she was "naked and running around". She states that her neighbor had called the police which brought her here. She mentions that she lives with her mother and brother and that she had gone over to her friend's home which police was called but was not able to elaborate why friend feel concern to call the police. Patient states that she had been receiving medications "injection" through her outpatient provider was not able to recall which medications they were and states that they were for depression. Currently patient reports feeling "fine" denying any perceptional services at this time but states that she is feeling paranoid of "everyone". Tobacco Use In Past 30 Days: 5 or More Cigarettes/Day Alcohol Use: Never Results Blood Pressure 109 / 65 Vital Signs Date Time Temp Pulse Resp B/P (MAP) Pulse Ox O2 Delivery O2 Flow Rate FiO2 04/05/18 06:05 98.1 75 16 109/65 (80) 97 Laboratory Results Test 03/31/18 07:16 Cholesterol Level 154 MG/DL (120-200) HDL Cholesterol 39.9 MG/DL (40.0-60.0) Hemoglobin A1c 5.7 % (4.3-6.0) LDL Cholesterol 98 MG/DL (0-99) Triglycerides Level 80 MG/DL (42-150) Medications Approp Antipsych med options 1 - Minimum of three failed multiple trials of monotherapy. 2 - Documented plan to taper to monotherapy due to previous use of multiple meds OR cross-taper in progress at D/[facility]. 3 - Documentation of augmentation of Clozapine. 4 - Justification other than those listed in allowable values 1-3, document here : Discharge Pt Condition on Discharge: Stable Discharge Disposition: Discharge Home Discharge Instructions Diet Instructions: As Tolerated, No Restrictions Activities you can perform: Regular-No Restrictions Mental Status Examination Appearance: Appropriate, Other (In [facility]) Consciousness: Alert Orientation: Person, Place (At least) Motor Activity: Normal gait, Other (No tremor, no dystonia, no dyskinesia noted ) Speech: Unremarkable Language: Adequate Fund of Knowledge: Adequate Attention and Concentration: Easily Distracted Memory: Impaired (Psychosis interferes) Mood: Appropriate Affect: Appropriate Thought Process & Associations: Other ([place]) Thought Content: Hallucinations, Delusional Hallucination Type: Auditory (Denies today), Other (Internally preoccupied) Delusion Type: Paranoid (Lessening), Other (Persecutory) Suicidal Ideation: No (Unreliable to contract for safety) Suicidal Plan: No Suicidal Intention: No Homicidal Ideation: No Homicidal Plan: No Homicidal Intention: No Insight: Poor Judgment: Poor Discharge/Advance Care Plan Health Problems: (1) Paranoid schizophrenia, chronic condition with acute exacerbation Goals to promote your health * To prevent worsening of your condition and complications * To maintain your health at the optimal level Directions to meet your goals Take your medications as prescribed Follow your dietary instruction Follow activity as directed Keep your appointments as scheduled Take your immunizations and boosters as scheduled If your symptoms worsen call your PCP, if no PCP go to Urgent Care Center or Emergency Room For 22/05 questions related to your inpatient stay or results of tests pending at discharge, please contact Dr. Km Burris at Smoking is Dangerous to Your Health. Avoid second hand smoking Km Burris MD Apr 05, 2018 09:49
== END 2018-04-05 11:40 | disposition home or self-care (01) | DRG 885 ==
LOC: NEDAMB 15:04 → NEDA 03-27 08:28 → H260 03-27 12:15
PROVIDERS: ADMIT Student in an Organized Health Care Education/Training Program; ATTEND Student in an Organized Health Care Education/Training Program
DX: F20.0 Paranoid schizophrenia (principal); Z59.0 Homelessness; G89.29 Other chronic pain; M54.2 Cervicalgia; M54.9 Dorsalgia, unspecified; Z72.0 Tobacco use
CPT/HCPCS: 80048; 80053; 80061; 80307; 81001; 83036; 84443; 84703; 85025; 93005; 99285; Q0163